=== PATIENT | male | born 1955 | race Caucasian/White ===

== ENCOUNTER 2022-11-11 11:34 | Emergency (ER) | payer MEDICARE ==
[2022-11-11 11:59] LABS: Hemoglobin 14.1 g/dL (14.0-18.0); Mean Corpuscular HGB CONC 31.4 g/dL (32.0-36.0); Mean Corpuscular Volume 85.8 fl (78.0-98.0); RBC Distribution Width 15.2 % (11.5-14.5); Red Blood Cell (RBC) Count 5.22 mill/uL (4.70-6.10); White Blood Cell (WBC) Count 9.4 10x3/uL (4.8-10.8)
[2022-11-11] MEDS ORDERED: EPINEPHrine 1 MG/10 ML Abboject SYRINGE ONE (12:06)
[2022-11-11] MEDS ORDERED: Etomidate 20 MG/10 ML VIAL ONE (12:06)
[2022-11-11] MEDS ORDERED: Rocuronium Bromide 10 MG/ML (10ML VIAL) ONE (12:06)
[2022-11-11] MEDS ORDERED: Calcium Chloride 1 GM/10 ML Abboject SYRINGE ONE (12:06)
[2022-11-11] MEDS ORDERED: Sodium Bicarb 50 MEQ/50 ML Abboject 8.4% SYRINGE ONE (12:06)
[2022-11-11 12:12] LABS: Prothrombin Time 15.8 sec (12.0-14.7)
[2022-11-11 12:15] LABS: INR-International Normal Ratio 1.2
[2022-11-11 12:19] LABS: ALT (SGPT) 14 U/L (8-55); AST (SGOT) 18 U/L (5-34); Albumin 3.5 g/dL (3.4-4.8); Alkaline Phosphatase 149 U/L (40-110); Anion Gap 19 mmol/L (10-20); BUN (Urea Nitrogen) 35 mg/dL (8.4-25.7); Calc. Creatinine Clearance 0 mL/min (70-130); Calcium 8.9 mg/dL (7.8-10.44); Carbon Dioxide 22 mmol/L (23-31); Chloride 103 mmol/L (98-107); Estimated GFR 81; Globulin 2.6 g/dL (2.4-3.5); Glucose 229 mg/dL (80-115); Potassium 3.5 mmol/L (3.5-5.1); Protein, Total 6.1 g/dL (5.8-8.1); Sodium 140 mmol/L (136-145)
[2022-11-11 12:24] LABS: Anisocytosis SLIGHT = 6-15 cells (100X) (0-5/hpf); Band 6 % (5-11); Lymphocytes 6 % (21-51); MDiff Complete? YES; Mean Platelet Volume 10.3 fL (7.4-10.4); Neutrophil 88 % (42-75); Ovalocytes SLIGHT = 2-5 cells (100X) (0-1/hpf); Platelet Count 180 10x3/uL (130-400); Platelet Morphology Comment Appears Adequate
== END 2022-11-11 12:26 | disposition expired ==
LOC: ERS 11:34
DX: I46.9 Cardiac arrest, cause unspecified (principal); R09.02 Hypoxemia; I63.9 Cerebral infarction, unspecified
CPT/HCPCS: 31500; 70450; 80053; 84484; 85025; 85610; 85730; 92950; 94760; J0171